=== PATIENT | female | born 1995 | race Caucasian/White ===

== ENCOUNTER 2018-02-27 15:15 | Outpatient (RCR) | payer BC ==
[2018-03-04] MEDS ORDERED: SAFYRAL1 TAB PO (13:49)
[2018-03-04] MEDS ORDERED: ZYRTEC 10MG10 MG PO (13:50)
[2018-03-04] MEDS ORDERED: ZOFRAN 4MG T4 MG/TAB PO (13:50)
[2018-03-04] MEDS ORDERED: PROBIOTIC FORMU1 CAP PO (13:51)
[2018-03-04] MEDS ORDERED: PRILOSEC 20MG20 MG (14:45)
== END 2018-03-26 | disposition home or self-care (01) ==
LOC: MKS.ESL.PT
DX: R10.2 Pelvic and perineal pain (principal)

== ENCOUNTER 2018-03-04 13:07 | Day surgery (SDC) | payer BC ==
[~2018-03-04] VITALS: Ht 152.4 cm; Wt 59.0 kg
[2018-03-04 13:39] VITALS: BP 128/95; PULSE 102; TEMP 99.1
[2018-03-04] MEDS ORDERED: SAFYRAL1 TAB PO (13:49)
[2018-03-04] MEDS ORDERED: ZOFRAN 4MG T4 MG/TAB PO (13:50)
[2018-03-04] MEDS ORDERED: ZYRTEC 10MG10 MG PO (13:50)
[2018-03-04] MEDS ORDERED: PROBIOTIC FORMU1 CAP PO (13:51)
[2018-03-04 14:45] VITALS: BP 128/78; PULSE 93; TEMP 98.1
[2018-03-04] MEDS ORDERED: PRILOSEC 20MG20 MG (14:45)
[2018-03-04 15:00] VITALS: BP 111/71; PULSE 80
[2018-03-04 15:15] VITALS: BP 115/77; PULSE 74
== END 2018-03-04 15:54 | disposition home or self-care (01) ==
LOC: SDCO 13:07
DX: K21.0 Gastro-esophageal reflux disease with esophagitis (principal); R11.2 Nausea with vomiting, unspecified; R19.7 Diarrhea, unspecified; R19.4 Change in bowel habit
CPT/HCPCS: OP; J2250; J2405; J3010; J7030